=== PATIENT | male | born 2000 | race Caucasian/White ===

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

== ENCOUNTER 2022-06-30 00:35 | Emergency (ER) | payer OTHER ==
[~2022-06-30] VITALS: Ht 180.3 cm; Wt 100.0 kg
[2022-06-30] MEDS ORDERED: LORAZEPAM 2MG/ML CPJ IM STA (01:15)
[2022-06-30] MEDS ORDERED: OLANZAPINE 10 MG/VIAL IM STA (01:20)
[2022-06-30] MEDS ORDERED: DIPHENHYDRAMINE 50MG/ML VIAL IM STA (01:20)
[2022-06-30 02:25] LABS: BASOPHILS % 0.4 % (0.0-2.0); EOSINOPHILS % 0.3 % (0.0-5.0); HEMATOCRIT. 42.9 % (42.0-52.0); HEMOGLOBIN. 14.7 g/dL (14.0-18.0); LYMPHOCYTES % 19.6 % (20.0-50.0); MEAN CORPUSCULAR HEMOGLOBIN 30.1 pg (28.0-32.0); MEAN CORPUSCULAR VOLUME 87.4 fL (80.0-94.0); MEAN PLATELET VOLUME 10.4 fl (7.4-10.4); MONOCYTES % 6.7 % (2.0-8.0); PLATELET 229 x1000/uL (130-400); RED CELL DISTRIBUTION WIDTH 13.5 % (11.6-14.6)
[2022-06-30 02:27] LABS: CHLORIDE 107 mEq/L (98-107)
[2022-06-30 02:34] LABS: ETHANOL BLOOD < 10 mg/dL
[2022-06-30 11:03] LABS: CLARITY URINE CLEAR (CLEAR); COLOR URINE ORANGE (YELLOW); KETONES URINE 3+ (NEGATIVE); LEUKOCYTE ESTERASE URINE NEGATIVE (NEGATIVE); NITRITE URINE NEGATIVE (NEGATIVE); OCCULT BLOOD URINE NEGATIVE (NEGATIVE); PH URINE 5.5 (4.5-8.0); PROTEIN URINE 1+ (NEGATIVE); SPECIFIC GRAVITY URINE 1.039 (1.005-1.030)
[2022-06-30 11:30] LABS: *AMPHETAMINES SCREEN URINE NEGATIVE (NEGATIVE); *BARBITURATES SCREEN URINE NEGATIVE (NEGATIVE); *BENZODIAZEPINES SCREEN URINE NEGATIVE (NEGATIVE); *COCAINE SCREEN URINE NEGATIVE (NEGATIVE); CANNABINOID URINE SCREEN PRESUMTIVE POSITIVE (NEGATIVE); METHADONE URINE SCREEN NEGATIVE (NEGATIVE); OPIATES URINE SCREEN NEGATIVE (NEGATIVE); PHENCYCLIDINE URINE SCREEN NEGATIVE (NEGATIVE)
[2022-06-30] MEDS: OLANZAPINE 5MG TABLET PO SCH (22:54)
[2022-07-01] MEDS: OLANZAPINE 5MG TABLET PO SCH ×2 (09:00→21:37)
[2022-07-01] MEDS ORDERED: MIDAZOLAM HCL 2 MG/2 ML VIAL IV ONE (19:30)
[2022-07-02] MEDS: OLANZAPINE 5MG TABLET PO SCH (09:26)
[2022-07-02 17:41] VITALS: BP 151/91
[2022-07-02] MEDS ORDERED: OLANZAPINE 5MG TABLET PO SCH (21:00)
== END 2022-07-02 18:08 ==
LOC: ER 00:35
DX: T43.621A Poisoning by amphetamines, accidental (unintentional), initial encounter (principal); G92.8 Other toxic encephalopathy; F91.8 Other conduct disorders; F32.A Depression, unspecified; R45.851 Suicidal ideations; Z20.822 Contact with and (suspected) exposure to COVID-19; Z75.1 Person awaiting admission to adequate facility elsewhere; Y92.018 Other place in single-family (private) house as the place of occurrence of the external cause
CPT/HCPCS: 36415; 80053; 80305; 80307; 80320; 80329; 81003; 82962; 85025; 96372; 99285; C9803; J1200; J2060; J3490; U0003; U0005; G0480

== ENCOUNTER 2022-09-09 23:42 | Emergency (ER) | payer OTHER ==
[~2022-09-09] VITALS: Ht 172.7 cm; Wt 95.0 kg
[2022-09-10 01:21] LABS: BASOPHILS % 0.6 % (0.0-2.0); HEMATOCRIT. 47.1 % (42.0-52.0); HEMOGLOBIN. 16.1 g/dL (14.0-18.0); LYMPHOCYTES % 23.9 % (20.0-50.0); MEAN CORPUSCULAR HEMOGLOBIN 29.8 pg (28.0-32.0); MEAN CORPUSCULAR VOLUME 87.1 fL (80.0-94.0); MEAN PLATELET VOLUME 9.7 fl (7.4-10.4); MONOCYTES % 7.6 % (2.0-8.0); NEUTROPHILS % 66.9 % (40.0-76.0); PLATELET 320 x1000/uL (130-400); RED BLOOD CELL COUNT 5.41 mill/uL (4.7-6.1); RED CELL DISTRIBUTION WIDTH 13.7 % (11.6-14.6)
[2022-09-10] MEDS ORDERED: HALOPERIDOL LACTATE 5MG/ML VIAL IM ONE ×2 (01:30→19:00)
[2022-09-10 01:37] LABS: CHLORIDE 103 mEq/L (98-107)
[2022-09-10 01:53] LABS: ETHANOL BLOOD < 10 mg/dL
[2022-09-10] MEDS ORDERED: ZIPRASIDONE MESYLATE 20MG/VIAL IM ONE (05:00)
[2022-09-10] MEDS ORDERED: LORAZEPAM 2MG/ML CPJ IM STA (11:37)
[2022-09-10] MEDS: DIVALPROEX SODIUM 250MG DR TABLET PO SCH ×2 (11:38→21:30)
[2022-09-10] MEDS: RISPERIDONE 1MG TABLET PO SCH ×2 (11:38→21:30)
[2022-09-10] MEDS ORDERED: OLANZAPINE 10 MG/VIAL IM ONE (11:45)
[2022-09-10] MEDS ORDERED: QUETIAPINE FUMARATE 50MG TABLET PO SCH (23:45)
[2022-09-11 04:39] LABS: *AMPHETAMINES SCREEN URINE NEGATIVE (NEGATIVE); *BARBITURATES SCREEN URINE NEGATIVE (NEGATIVE); *BENZODIAZEPINES SCREEN URINE NEGATIVE (NEGATIVE); *COCAINE SCREEN URINE NEGATIVE (NEGATIVE); CANNABINOID URINE SCREEN PRESUMTIVE POSITIVE (NEGATIVE); METHADONE URINE SCREEN NEGATIVE (NEGATIVE); OPIATES URINE SCREEN NEGATIVE (NEGATIVE); PHENCYCLIDINE URINE SCREEN NEGATIVE (NEGATIVE)
[2022-09-11] MEDS: RISPERIDONE 1MG TABLET PO SCH (08:47)
[2022-09-11] MEDS: DIVALPROEX SODIUM 250MG DR TABLET PO SCH (08:47)
[2022-09-11] MEDS ORDERED: HALOPERIDOL LACTATE 5MG/ML VIAL IM ONE (11:30)
[2022-09-11] MEDS ORDERED: LORAZEPAM 2MG/ML CPJ IV ONE (11:30)
[2022-09-11 14:17] VITALS: BP 121/70
== END 2022-09-11 14:37 ==
LOC: ER 09-10 00:09
DX: F23 Brief psychotic disorder (principal); F91.8 Other conduct disorders; F32.9 Major depressive disorder, single episode, unspecified; F15.10 Other stimulant abuse, uncomplicated; Z78.1 Physical restraint status; Z20.822 Contact with and (suspected) exposure to COVID-19; Z75.1 Person awaiting admission to adequate facility elsewhere
CPT/HCPCS: 36415; 80053; 80305; 80307; 80320; 80329; 84443; 85025; 87426; 96372; 96374; 99285; C9803; J1630; J2060; J3486; J3490; Z7610; G0480

== ENCOUNTER 2024-03-10 23:07 | Emergency (ER) | payer OTHER ==
[~2024-03-10] VITALS: Ht 165.1 cm; Wt 105.0 kg
[2024-03-10 23:16] VITALS: O2SAT 98
[2024-03-11] MEDS: FAMOTIDINE 20MG TABLET PO ONE (00:11)
[2024-03-11] MEDS ORDERED: FAMO-135 MT (01:45)
[2024-03-11 02:00] VITALS: BP 122/88; PULSE 87; RESP 17; TEMP 97.8
== END 2024-03-11 02:07 | disposition home or self-care (01) ==
LOC: ER 23:07
DX: R07.0 Pain in throat (principal)
CPT/HCPCS: 70360; 99283

== ENCOUNTER 2025-03-20 00:52 | Emergency (ER) | payer OTHER ==
[~2025-03-20] VITALS: Ht 170.2 cm; Wt 129.0 kg
[~2025-03-20 00:52] MED LIST: FAMO-135 MT
[2025-03-20 01:43] VITALS: O2SAT 99
[2025-03-20] MEDS: BACITRACIN ZINC OINT UDPKT TOP ONE (03:15)
[2025-03-20] MEDS ORDERED: BO1 TP (04:12)
[2025-03-20 04:26] VITALS: BP 126/85; PULSE 93; RESP 16; TEMP 36.8; O2SAT 98
== END 2025-03-20 04:40 | disposition home or self-care (01) ==
LOC: ER 00:52
DX: L92.8 Other granulomatous disorders of the skin and subcutaneous tissue (principal); Z48.00 Encounter for change or removal of nonsurgical wound dressing; F15.90 Other stimulant use, unspecified, uncomplicated
CPT/HCPCS: 99282; Z7610